=== PATIENT | male | born 1975 | race Caucasian/White ===

== ENCOUNTER 2016-12-21 00:05 | Emergency (ER) | payer OTHER ==
[2016-12-21 00:18] VITALS: BP 123/71; PULSE 98; TEMP 98.5; BMI 26.4
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
== END 2016-12-21 01:07 | disposition home or self-care (01) ==
LOC: JER 00:05
DX: S60.222A Contusion of left hand, initial encounter (principal); W22.8XXA Striking against or struck by other objects, initial encounter; Y93.89 Activity, other specified; Y92.89 Other specified places as the place of occurrence of the external cause
CPT/HCPCS: 73130-TC-RT; 99281-25